=== PATIENT | female | born 1960 | race African-American/Black ===

== ENCOUNTER 2017-11-01 21:17 | Emergency (ER) | payer SELFPAY ==
[~2017-11-01] VITALS: Ht 162.6 cm; Wt 75.0 kg
[2017-11-02] MEDS ORDERED: KETOROLAC 30MG/ML VIAL IV STA (03:16)
[2017-11-02] MEDS ORDERED: ONDANSETRON HCL 4MG/2ML INJ IV STA (03:16)
[2017-11-02] MEDS ORDERED: SODIUM CHLORIDE 0.9% 1,000 ML IV ONE (03:16)
[2017-11-02 03:35] LABS: BASOPHILS % 0.1 % (0.0-2.0); EOSINOPHILS % 0.1 % (0.0-5.0); HEMOGLOBIN. 13.3 g/dL (12.0-16.0); LYMPHOCYTES % 8.3 % (20.0-50.0); MEAN CORPUSCULAR HEMOGLOBIN 27.6 pg (28.0-32.0); MEAN CORPUSCULAR VOLUME 82.9 fL (81.0-99.0); MEAN PLATELET VOLUME 8.6 fl (7.4-10.4); MONOCYTES % 2.6 % (2.0-8.0); NEUTROPHILS % 88.9 % (40.0-76.0); PLATELET 260 x1000/uL (130-400); RED BLOOD CELL COUNT 4.82 mill/uL (4.2-5.4); RED CELL DISTRIBUTION WIDTH 13.9 % (11.6-14.6)
[2017-11-02 03:43] LABS: PROTHROMBIN TIME 10.8 sec (9.4-11.6)
[2017-11-02 03:49] LABS: HCG SCREEN NEGATIVE
[2017-11-02 03:57] LABS: CHLORIDE 106 mEq/L (98-107)
[2017-11-02] MEDS ORDERED: ENALAPRIL 10MG TABLET PO ONE (04:00)
[2017-11-02] MEDS ORDERED: MAGNESIUM/ALUMINUM HYDROXIDE/SIMETHICONE 30ML UDC PO STA (04:24)
[2017-11-02] MEDS ORDERED: VISCOUS LIDOCAINE 2% 15 ML UDC MM ONE (04:30)
[2017-11-02 04:47] LABS: CLARITY URINE CLEAR (CLEAR); COLOR URINE YELLOW (YELLOW); KETONES URINE NEGATIVE (NEGATIVE); LEUKOCYTE ESTERASE URINE NEGATIVE (NEGATIVE); NITRITE URINE NEGATIVE (NEGATIVE); OCCULT BLOOD URINE NEGATIVE (NEGATIVE); PROTEIN URINE NEGATIVE (NEGATIVE); SPECIFIC GRAVITY URINE 1.014 (1.005-1.030)
[2017-11-02 05:38] LABS: *AMPHETAMINES SCREEN URINE NEGATIVE (NEGATIVE); *BARBITURATES SCREEN URINE NEGATIVE (NEGATIVE); *BENZODIAZEPINES SCREEN URINE NEGATIVE (NEGATIVE); *COCAINE SCREEN URINE NEGATIVE (NEGATIVE); CANNABINOID URINE SCREEN NEGATIVE (NEGATIVE); METHADONE URINE SCREEN NEGATIVE (NEGATIVE); PHENCYCLIDINE URINE SCREEN NEGATIVE (NEGATIVE)
[2017-11-02 05:58] LABS: OPIATES URINE SCREEN NEGATIVE (NEGATIVE)
[2017-11-02] MEDS ORDERED: BENAZEPRIL 10MG TABLET PO ONE (06:15)
[2017-11-02 08:28] VITALS: BP 173/97
== END 2017-11-02 08:31 | disposition home or self-care (01) ==
LOC: ER 22:44
DX: K29.70 Gastritis, unspecified, without bleeding (principal); I10 Essential (primary) hypertension; R94.31 Abnormal electrocardiogram [ECG] [EKG]; Z90.710 Acquired absence of both cervix and uterus
CPT/HCPCS: 36415; 71045; 80053; 80305; 81003; 84484; 84703; 85025; 85610; 93005; 96361; 96374; 96375; 99285; J1885; J2405; J7030; Z7610